=== PATIENT | female | born 1970 | race Caucasian/White ===

== ENCOUNTER → 2018-10-29 | Outpatient (CLI) | payer MEDICARE, MEDICAID ==
--- NOTE | 2018-10-29 16:04 | REP ---
MRI brain without contrast: History: Chronic migraine. Dizziness and giddiness. Paresthesias. . Comparison study: No comparison brain imaging. Technique: Axial and sagittal imaging planes are utilized for T1 and T2-weighted scans. Sequences include spin-echo, fast spin echo, FLAIR, and diffusion weighted sequences. MRI findings: No bony calvarial lesion is seen. Craniocervical junction and upper cervical cord are normal in appearance. There is no MR evidence of significant paranasal sinus disease. No intraorbital abnormality is seen. The lateral, third, and fourth ventricles are normal in size and position. Hwitaker-white differentiation pattern is intact above and below the tentorium. There is no evidence of intracranial hemorrhage. No mass, infarction, extra-axial fluid collection or midline shift is seen. No abnormal white matter lesion is seen. Impression: Negative noncontrast brain MRI study. Electronically Signed by Wesley Deluca MD 10/29/2018 03:55 P
--- NOTE | 2018-10-29 16:47 | REP ---
MRI lumbar spine without contrast: History: Spinal stenosis lumbar region. Paresthesias of the skin. Muscle weakness. Neurogenic claudication. No comparison imaging. Technique: Sagittal and axial T1 and T2-weighted scans are acquired in the usual fashion with and without fat saturation. Sequences include spin echo, turbo spin-echo, and STIR imaging sequences. MRI findings: Degenerative disc disease is noted at L5-S1 and L4-5 with disc space narrowing and decreased disc space signal intensity. There are reactive marrow changes on either side of the L5-S1 disc. There are two small hemangiomas inferiorly on the left side at L3. A tiny hemangioma is seen at L4. Cortical and medullary bone signal intensity are otherwise normal. Conus medullaris tip is normal in position and appearance at T12-L1. No extra spinal abnormality is observed. Axial and sagittal images taken at the L5-S1 disc level show a left paracentral small focal disc protrusion effacing the ventral epidural fat and subtly indenting the ventral margin of the thecal sac. No nerve root displacement or compression is visible. There is mild facet hypertrophy bilaterally at L5-S1. No neural foraminal narrowing is seen. At L4-5, there is advanced osteoarthritic facet hypertrophy bilaterally. Facet sclerosis is present. There is some ligamentum flavum and facet hypertrophy compressing the thecal sac from the dorsal lateral aspect on the left. There is mild disc bulging. There is mild left-sided neural foraminal narrowing due to facet spurring. No spinal stenosis is seen. At L3-4, there is mild to moderate facet hypertrophy bilaterally but no other abnormality. No neural foraminal narrowing is seen. The posterior margin at the L2-3 and L1-2 discs are unremarkable. Impression: Osteoarthritic facet disease bilaterally at L3-4 through L5-S1. This is most pronounced at L4-5 particularly on the left. There is left-sided L4-5 neural foraminal narrowing associated with this. Advanced degenerative disc disease is noted at L5-S1. A small left posterior disc protrusion is seen at L5-S1. Electronically Signed by Wesley Deluca MD 10/29/2018 08:11 P
== END ==
LOC: M PLARAD 13:33
PROVIDERS: ATTEND Psychiatry & Neurology Neurology
DX: G43.719 Chronic migraine without aura, intractable, without status migrainosus (principal); R42 Dizziness and giddiness; R20.2 Paresthesia of skin; M48.062 Spinal stenosis, lumbar region with neurogenic claudication; M62.81 Muscle weakness (generalized); M51.26 Other intervertebral disc displacement, lumbar region; M47.896 Other spondylosis, lumbar region

== ENCOUNTER 2020-10-09 07:34 | Emergency (ER) | payer MEDICARE, MEDICAID ==
[~2020-10-09] VITALS: Ht 162.6 cm; Wt 161.8 kg
[2020-10-09] MEDS ORDERED: OMEP-221 (08:17)
[2020-10-09] MEDS ORDERED: FURO40TA2 (08:17)
[2020-10-09] MEDS ORDERED: ALBU83IN (08:17)
[2020-10-09] MEDS ORDERED: OXYB10TA23 (08:17)
[2020-10-09] MEDS ORDERED: LISI10TA22 (08:17)
[2020-10-09] MEDS ORDERED: NUCY50TA19 (08:17)
[2020-10-09] MEDS ORDERED: CYCL-707 (08:17)
[2020-10-09] MEDS ORDERED: MONT10TA10 (08:17)
[2020-10-09] MEDS ORDERED: GRAL600T (08:17)
[2020-10-09] MEDS ORDERED: HYDR-3363 (08:17)
[2020-10-09] MEDS ORDERED: COSE1INJ (08:17)
[2020-10-09] MEDS ORDERED: NYST1POW9 (08:17)
[2020-10-09 10:14] VITALS: BP 153/90
== END 2020-10-09 10:28 | disposition home or self-care (01) ==
LOC: M ED 07:34
DX: J02.9 Acute pharyngitis, unspecified (principal); R51.9 Headache, unspecified; I10 Essential (primary) hypertension; J45.909 Unspecified asthma, uncomplicated; M06.9 Rheumatoid arthritis, unspecified; M19.90 Unspecified osteoarthritis, unspecified site; Z88.8 Allergy status to other drugs, medicaments and biological substances; Z79.899 Other long term (current) drug therapy

== ENCOUNTER → 2022-09-16 | Outpatient (RCR) | payer MEDICARE, MEDICAID ==
[~2022-09-16] MED LIST: ALBU2.5V10; COSE1INJ; CYCL-707; FURO40TA2; GRAL600T; HYDR-3363; LISI10TA22; MONT10TA97; NUCY50TA19; NYST1POW9; OMEP40CA5; OXYB10TA23
== END ==
LOC: M PT 13:30
PROVIDERS: ATTEND Nurse Practitioner
DX: I89.0 Lymphedema, not elsewhere classified (principal)

== ENCOUNTER 2022-09-25 12:34 | Outpatient (RCR) | payer MEDICARE, MEDICAID | END 2022-10-17 | LOC: M PT 12:34 | PROVIDERS: ATTEND Nurse Practitioner | DX: I89.0 Lymphedema, not elsewhere classified (principal) ==

== ENCOUNTER → 2022-10-20 | Outpatient (REF) | payer MEDICARE, MEDICAID | LOC: M SFHCWAGY 18:24 | PROVIDERS: ATTEND Nurse Practitioner Family | DX: Z12.4 Encounter for screening for malignant neoplasm of cervix (principal) ==

== ENCOUNTER → 2022-11-20 | Outpatient (REF) | payer MEDICARE, MEDICAID | LOC: M SFHCWAGY 17:26 | PROVIDERS: ATTEND Nurse Practitioner Family | DX: L29.2 Pruritus vulvae (principal) ==

== ENCOUNTER → 2023-04-21 | Outpatient (CLI) | payer MEDICARE ==
[~2023-04-21] MED LIST changes: -ALBU2.5V10; +ALBU2.5V10 INH; +CLOB60CR4 VG; -CYCL-707; +CYCL-707 PO; -FURO40TA2; +FURO40TA2 PO; -GRAL600T; +GRAL600T PO; -HYDR-3363; +HYDR-3363 PO; -MONT10TA97; +MONT10TA97 PO; -NUCY50TA19; +NUCY50TA19 PO; -NYST1POW9; +NYST1POW9 TOP; -OMEP40CA5; +OMEP40CA5 PO; -OXYB10TA23; +OXYB10TA23 PO; +SYMB16INH INH
[2023-04-21 15:44] LABS: BASO % 0.3 % (0.0-1.0); EOS # 0.2 10^3/uL (0.0-0.5); EOS % 2.9 % (0.0-3.0); HEMOGLOBIN 12.8 g/dl (12.0-15.5); LYMPH # 1.4 10^3/uL (1.5-5.0); LYMPH % 22.9 % (24.0-44.0); MEAN CORPUSCULAR HEMOGLOBIN 29.2 pg (27.0-33.0); MEAN CORPUSCULAR HGB CONC 31.2 g/dl (32.0-36.5); MEAN CORPUSCULAR VOLUME 93.6 fl (80.0-96.0); MONO # 0.4 10^3/uL (0.0-0.8); MONO % 6.1 % (2.0-8.0); NEUTROPHILS % 67.5 % (36.0-66.0); PLATELET COUNT, AUTOMATED 260 10^3/uL (150-450); RED BLOOD COUNT 4.38 10^6/uL (4.00-5.40); WHITE BLOOD COUNT 5.9 10^3/uL (4.0-10.0)
[2023-04-21 15:56] LABS: ERYTHROCYTE SEDIMENTATION RATE 58 mm/hr (0-30)
[2023-04-21 16:12] LABS: ALBUMIN 3.4 G/DL (3.2-5.2); ALKALINE PHOSPHATASE 121 U/L (46-116); ALT/SGPT 14 U/L (7.0-40); AST/SGOT 13 U/L (<34); BILIRUBIN,TOTAL 0.7 MG/DL (0.3-1.2); BLOOD UREA NITROGEN 13 MG/DL (9-23); CALCIUM LEVEL 9.1 MG/DL (8.5-10.1); CARBON DIOXIDE LEVEL 30 MMOL/L (20-31); CHLORIDE LEVEL 105 MMOL/L (98-107); CREATININE FOR GFR 0.81 MG/DL (0.55-1.30); GLOMERULAR FILTRATION RATE > 60.0 (>51); GLUCOSE, FASTING 85 MG/DL (60-100); SODIUM LEVEL 141 MMOL/L (136-145); TOTAL PROTEIN 7.2 G/DL (5.7-8.2)
== END ==
LOC: M PLALAB 12:26
PROVIDERS: ATTEND Internal Medicine Infectious Disease
DX: L03.119 Cellulitis of unspecified part of limb (principal)

== ENCOUNTER → 2025-03-30 | Outpatient (REF) | payer MEDICARE, MEDICAID ==
[~2025-03-30] MED LIST changes: +NYST1POW3 TOP; -NYST1POW9 TOP
[2025-03-30 13:50] LABS: APPEARANCE, URINE CLEAR (CLEAR); BACTERIA, URINE AUTO 3+ (NEGATIVE); BILIRUBIN, URINE AUTO NEGATIVE (NEGATIVE); BLOOD, URINE BLOOD NEGATIVE (NEGATIVE); GLUCOSE, URINE (UA) AUTO NEGATIVE (NEGATIVE); KETONE, URINE AUTO NEGATIVE (NEGATIVE); LEUKOCYTE ESTERASE, URINE AUTO NEGATIVE (NEGATIVE); MUCUS, URINE SMALL (NEGATIVE); NITRITE, URINE AUTO NEGATIVE (NEGATIVE); PROTEIN, URINE AUTO NEGATIVE (NEGATIVE); RBC, URINE AUTO 1 /HPF (0-3); SPECIFIC GRAVITY URINE AUTO 1.020 (1.002-1.035); SQUAMOUS EPITHELIAL CELL UR AU 2 /HPF (0-6); UROBILINOGEN, URINE AUTO 0.2 mg/dL (0.0-2.0); WBC, URINE AUTO 5 /HPF (0-3)
== END ==
LOC: M SFHCWAGY 12:58
PROVIDERS: ATTEND Nurse Practitioner Family
DX: R32 Unspecified urinary incontinence (principal); R23.9 Unspecified skin changes